=== PATIENT | female | born 1985 | race American Indian/Alaskan Native ===

== ENCOUNTER 2016-10-16 16:43 | Emergency (ER) | payer SELFPAY ==
[2016-10-16] MEDS ORDERED: BOOSTRIX IM ONE (18:15)
--- NOTE | 2016-10-16 18:24 | Emergency Department Report ---
- General Chief complaint: Skin/Abscess/Foreign Body Stated complaint: POSS SPIDER BITE Time Seen by Provider: 10/16/16 18:10 Source: patient Mode of arrival: Ambulatory Limitations: No Limitations - History of Present Illness Initial comments: Patient presents with swelling and redness to right lower calf with a puncture site. She also admits to itching around the thigh and pain with palpation. She denies recent travel. She also admits to staying at her sister's house who she noticed ants in the house. She however she did not see an insect or ant on her skin. She denies having seen a tick as well. She denies fever, chills, vomiting but does admit to some nausea. She also admits to itching at the site. He denies difficulty swallowing, shortness of breath, swelling of her throat. Symptoms began yesterday. MD complaint: rash -: Gradual Tetanus Up to Date: no Location: [facility] Severity: moderate Severity scale (0 -10): 8 Quality: sharp Consistency: intermittent Worsens with: palpation Associated symptoms: nausea Treatments Prior to Arrival: other (cleaned site with alcohol) - Related Data Previous Rx's Medication Instructions Recorded Last Taken Type Hyoscyamine Subl [Levsin Sl] 0.125 mg SL Q4HR PRN #10 tablet 02/16/14 Unknown Rx Ondansetron [Zofran Odt] 4 mg PO Q4H #14 tab.rapdis 02/16/14 Unknown Rx Hydroxyzine HCl 25 mg PO Q8HR #14 tablet 10/16/16 Unknown Rx Sulfamethoxazole/Trimethoprim 1 each PO BID #20 tablet 10/16/16 Unknown Rx [Bactrim DS TAB] Allergies Allergy/AdvReac Type Severity Reaction Status Date / Time No Known Allergies Allergy Unverified 02/15/14 21:44 Abscess Boil HPI - HPI Chief Complaint: Skin/Abscess/Foreign Body Stated Complaint: POSS SPIDER BITE Time Seen by Provider: 10/16/16 18:10 Home Medications: Previous Rx's Medication Instructions Recorded Last Taken Type Hyoscyamine Subl [Levsin Sl] 0.125 mg SL Q4HR PRN #10 tablet 02/16/14 Unknown Rx Ondansetron [Zofran Odt] 4 mg PO Q4H #14 tab.rapdis 02/16/14 Unknown Rx Hydroxyzine HCl 25 mg PO Q8HR #14 tablet 10/16/16 Unknown Rx Sulfamethoxazole/Trimethoprim 1 each PO BID #20 tablet 10/16/16 Unknown Rx [Bactrim DS TAB] Allergies/Adverse Reactions: Allergies Allergy/AdvReac Type Severity Reaction Status Date / Time No Known Allergies Allergy Unverified 02/15/14 21:44 ED Review of Systems ROS: Stated complaint: POSS SPIDER BITE Other details as noted in HPI Constitutional: denies: chills, fever Respiratory: denies: cough, shortness of breath, wheezing Cardiovascular: denies: chest pain, palpitations Gastrointestinal: nausea. denies: abdominal pain, vomiting, diarrhea Genitourinary: denies: urgency, dysuria, discharge Musculoskeletal: as per HPI Skin: as per HPI Neurological: denies: headache, weakness, paresthesias ED Past Medical Hx - Past Medical History Additional medical history: denies, anemia - Surgical History Additional Surgical History: cervical surgery - Social History Smoking Status: Former Smoker - Medications Home Medications: Home Medications Medication Instructions Recorded Confirmed Last Taken Type Hyoscyamine Subl [Levsin Sl] 0.125 mg SL Q4HR PRN #10 tablet 02/16/14 Unknown Rx Ondansetron [Zofran Odt] 4 mg PO Q4H #14 tab.rapdis 02/16/14 Unknown Rx Hydroxyzine HCl 25 mg PO Q8HR #14 tablet 10/16/16 Unknown Rx Sulfamethoxazole/Trimethoprim 1 each PO BID #20 tablet 10/16/16 Unknown Rx [Bactrim DS TAB] ED Physical Exam - General Limitations: No Limitations General appearance: alert, in no apparent distress, other (nontoxic appearance) - Head Head exam: Present: atraumatic, normocephalic - Eye Eye exam: Present: normal appearance, PERRL - Neck Neck exam: Present: normal inspection, full ROM. Absent: tenderness, lymphadenopathy - Respiratory Respiratory exam: Present: normal lung sounds bilaterally. Absent: respiratory distress - Cardiovascular Cardiovascular Exam: Present: regular rate, normal rhythm. Absent: systolic murmur, diastolic murmur, rubs, gallop - GI/Abdominal GI/Abdominal exam: Present: soft, normal bowel sounds - Neurological Exam Neurological exam: Present: alert, oriented X3 - Psychiatric Psychiatric exam: Present: normal affect, normal mood - Skin Skin exam: Present: warm, dry, intact, normal color, rash (posterior right calf lateral aspect there is redness, swelling, and a pinpoint puncture wound site. It is tender to palpation and patient has been scratching the area.) ED Course Vital Signs 10/16/16 17:17 Temperature 98.8 F Pulse Rate 95 H Respiratory 18 Rate Blood Pressure 129/83 O2 Sat by Pulse 100 Oximetry ED Medical Decision Making - Lab Data Result diagrams: 10/16/16 18:24 10/16/16 18:24 - Medical Decision Making Patient presents with right lower extremity cellulitis of approximately 1 inch in diameter with a single pinpoint puncture wound at that site. I will treat with Bactrim twice a day 10 days and hydroxyzine for the itching. I'll advise her to follow-up with outpatient clinic or back in the ED in 3-4 days to assure antibiotic treatment is working. I will give her a first dose of Bactrim before being discharged. CBC is within normal, CMP has not resulted but she will be notified if anything is abnormal. - Differential Diagnosis spider bite, cellulitis, abscess Critical Care Time: No Critical care attestation.: If time is entered above; I have spent that time in minutes in the direct care of this critically ill patient, excluding procedure time. ED Disposition Clinical Impression: Cellulitis Disposition: DISCHARGED TO HOME OR SELFCARE Is pt being admited?: No Does the pt Need Aspirin: No Condition: Stable Instructions: Cellulitis (ED), Insect Bite or Sting (ED), Acute Wound Care (ED) Additional Instructions: Follow-up with outpatient clinic or in the ED in 3-4 days to assure antibiotic is working. Follow up in the ED and immediately if pain, swelling, redness increases. Prescriptions: Sulfamethoxazole/Trimethoprim [Bactrim DS TAB] 1 each PO BID #20 tablet Hydroxyzine HCl 25 mg PO Q8HR #14 tablet Referrals: PRIMARY CARE, [Primary Care Provider] - 3-5 Days [facility] [Outside] - 3-5 Days Forms: Work/School Release Form(ED) Time of Disposition: 19:23
[2016-10-16 19:06] LABS: Basophils % (Auto) 0.3 % (0.0-1.8); Eosinophils % (Auto) 2.2 % (0.0-4.3); Hematocrit 39.5 % (30.3-42.9); Hemoglobin 13.1 gm/dl (10.1-14.3); Mean Corpuscular HGB Conc 33 % (30-34); Mean Corpuscular Hemoglobin 30 pg (28-32); Mean Corpuscular Volume 91 fl (79-97); Platelet Count 217 K/mm3 (140-440); Red Blood Count 4.34 M/mm3 (3.65-5.03); Red Cell Distribution Width 13.3 % (13.2-15.2); White Blood Count 6.6 K/mm3 (4.5-11.0)
[2016-10-16 19:24] LABS: Alanine Aminotransferase 10 units/L (7-56); Albumin 4.4 g/dL (3.9-5); Albumin/Globulin Ratio 1.3 %; Alkaline Phosphatase 63 units/L (35-129); Anion Gap 14 mmol/L; BUN/Creatinine Ratio 14.28; Bilirubin,Total 0.2 mg/dL (0.1-1.2); Blood Urea Nitrogen 10 mg/dL (7-17); Calcium 9.8 mg/dL (8.4-10.2); Carbon Dioxide 26 mmol/L (22-30); Chloride 97.1 mmol/L (98-107); Glucose 78 mg/dL (65-100); Potassium 3.9 mmol/L (3.6-5.0); Sodium 133 mmol/L (137-145); Total Protein 7.7 g/dL (6.3-8.2)
[2016-10-16] MEDS ORDERED: BACTRIM DS PO ONE (19:25)
[2016-10-16 20:01] VITALS: BP 128/80
== END 2016-10-16 20:04 | disposition home or self-care (01) ==
LOC: ED 16:43
DX: L03.115 Cellulitis of right lower limb (principal); Z87.891 Personal history of nicotine dependence
CPT/HCPCS: 36415; 80053; 84703; 85025; 90471; 90715

== ENCOUNTER 2017-04-15 11:44 | Emergency (ER) | payer SELFPAY ==
--- NOTE | 2017-04-15 12:07 | Emergency Department Report ---
ED General Adult HPI - General Chief complaint: Skin Rash Stated complaint: INSECT BITES Time Seen by Provider: 04/15/17 12:02 Source: patient Mode of arrival: Ambulatory Limitations: No Limitations - History of Present Illness Initial comments: PT states she went out of town for the weekend and she woke up with bug bites yesterday. PT states she has been having bites pop up. PT states she is concerned for bed bugs. PT states her and her child has similar bites. MD Complaint: rash -: Gradual, days(s), During the night Location: left, right, upper extremity, lower extremity Quality: other (itching ) Consistency: constant Improves with: none Associated Symptoms: rash. denies: nausea/vomiting, shortness of breath Treatments Prior to Arrival: none - Related Data Previous Rx's Medication Instructions Recorded Last Taken Type Hyoscyamine Subl [Levsin Sl] 0.125 mg SL Q4HR PRN #10 tablet 02/16/14 Unknown Rx Ondansetron [Zofran Odt] 4 mg PO Q4H #14 tab.rapdis 02/16/14 Unknown Rx Sulfamethoxazole/Trimethoprim 1 each PO BID #20 tablet 10/16/16 Unknown Rx [Bactrim DS TAB] hydrOXYzine PAMOATE [Vistaril] 25 mg PO Q6HR PRN #12 capsule 04/15/17 Unknown Rx predniSONE [Deltasone] 40 mg PO DAILY 3 Days 04/15/17 Unknown Rx Allergies Allergy/AdvReac Type Severity Reaction Status Date / Time No Known Allergies Allergy Unverified 02/15/14 21:44 ED Review of Systems ROS: Stated complaint: INSECT BITES Other details as noted in HPI Comment: All other systems reviewed and negative ENT: denies: throat pain Respiratory: denies: shortness of breath, SOB with exertion, SOB at rest Genitourinary: denies: abnormal menses (lmp yesterday ) Skin: as per HPI, rash ED Past Medical Hx - Past Medical History Additional medical history: denies, anemia - Surgical History Additional Surgical History: cervical surgery - Social History Smoking Status: Never Smoker Substance Use Type: None - Medications Home Medications: Home Medications Medication Instructions Recorded Confirmed Last Taken Type Hyoscyamine Subl [Levsin Sl] 0.125 mg SL Q4HR PRN #10 tablet 02/16/14 Unknown Rx Ondansetron [Zofran Odt] 4 mg PO Q4H #14 tab.rapdis 02/16/14 Unknown Rx Sulfamethoxazole/Trimethoprim 1 each PO BID #20 tablet 10/16/16 Unknown Rx [Bactrim DS TAB] hydrOXYzine PAMOATE [Vistaril] 25 mg PO Q6HR PRN #12 capsule 04/15/17 Unknown Rx predniSONE [Deltasone] 40 mg PO DAILY 3 Days 04/15/17 Unknown Rx ED Physical Exam - General Limitations: No Limitations General appearance: alert, in no apparent distress - Head Head exam: Present: atraumatic, normocephalic, other (bite to the R side of the face ) - Eye Eye exam: Present: normal appearance, PERRL, EOMI. Absent: conjunctival injection - ENT ENT exam: Present: normal exam, normal external ear exam - Neck Neck exam: Present: normal inspection, full ROM - Respiratory Respiratory exam: Present: normal lung sounds bilaterally. Absent: respiratory distress, chest wall tenderness - Cardiovascular Cardiovascular Exam: Present: regular rate, normal rhythm, normal heart sounds - GI/Abdominal GI/Abdominal exam: Present: soft. Absent: tenderness - Extremities Exam Extremities exam: Present: full ROM, other (LUE with whelps in linear pattern ) . Absent: tenderness - Back Exam Back exam: Present: normal inspection, full ROM. Absent: tenderness, CVA tenderness (R), CVA tenderness (L), muscle spasm, paraspinal tenderness, vertebral tenderness - Neurological Exam Neurological exam: Present: alert, oriented X3, normal gait - Skin Skin exam: Present: warm, dry, intact - Expanded Skin Exam Expanded Description of rash: Present: erythematous, swelling. Absent: vesicular, blisters, urticarial, crusting, discharge ED Course Vital Signs 04/15/17 12:07 Temperature 98.3 F Pulse Rate 72 Respiratory 18 Rate Blood Pressure 95/63 O2 Sat by Pulse 100 Oximetry - Pulse Oximetry Interpretation Digit-Finger Initial Pulse Oximetry Readin Actions Taken: none ED Medical Decision Making - Differential Diagnosis scabies, bed bugs, urticaria Critical Care Time: No Critical care attestation.: If time is entered above; I have spent that time in minutes in the direct care of this critically ill patient, excluding procedure time. ED Disposition Clinical Impression: Bed bug bite Qualifiers: Encounter type: initial encounter Qualified Code(s): W57.XXXA - Bitten or stung by nonvenomous insect and other nonvenomous arthropods, initial encounter Disposition: DC-01 TO HOME OR SELFCARE Is pt being admited?: No Does the pt Need Aspirin: No Condition: Stable Instructions: Insect Bite or Sting (ED) Additional Instructions: Wash all of your clothing and bedding that you took on your trip. Avoid direct sun exposure when on steroids Follow up with PCP in 3-5 days No [address] or alcohol after taking Vistaril Return to the ED if worsening swelling, redness, or concerns Prescriptions: hydrOXYzine PAMOATE [Vistaril] 25 mg PO Q6HR PRN #12 capsule PRN Reason: Itching predniSONE [Deltasone] 40 mg PO DAILY 3 Days Referrals: KAREN THAYER MD [Staff Physician] - 3-5 Days Time of Disposition: 12:51
[2017-04-15 12:10] VITALS: BP 95/63
== END 2017-04-15 14:14 | disposition home or self-care (01) ==
LOC: ED 11:44
DX: S00.86XA Insect bite (nonvenomous) of other part of head, initial encounter (principal); W57.XXXA Bitten or stung by nonvenomous insect and other nonvenomous arthropods, initial encounter; Y93.89 Activity, other specified; Y92.89 Other specified places as the place of occurrence of the external cause; Y99.8 Other external cause status
CPT/HCPCS: 99282

== ENCOUNTER 2018-05-09 06:20 | Emergency (ER) | payer SELFPAY ==
[2018-05-09] MEDS ORDERED: NACL 0.9% 1000 ML 1,000 ML IV ONE ×2 (06:25→09:35)
[2018-05-09 06:55] LABS: Basophils % (Auto) 0.3 % (0.0-1.8); Eosinophils # (Auto) 0.1 K/mm3 (0.0-0.4); Hematocrit 39.1 % (30.3-42.9); Lymphocytes % (Auto) 11.6 % (13.4-35.0); Mean Corpuscular HGB Conc 33 % (30-34); Mean Corpuscular Hemoglobin 30 pg (28-32); Mean Corpuscular Volume 91 fl (79-97); Monocytes # (Auto) 0.3 K/mm3 (0.0-0.8); Monocytes % (Auto) 3.6 % (0.0-7.3); Platelet Count 249 K/mm3 (140-440); Red Blood Count 4.28 M/mm3 (3.65-5.03); Red Cell Distribution Width 13.4 % (13.2-15.2)
[2018-05-09 07:09] LABS: Alanine Aminotransferase 12 units/L (7-56); Albumin 4.5 g/dL (3.9-5); BUN/Creatinine Ratio 9; Blood Urea Nitrogen 6 mg/dL (7-17); Calcium 9.2 mg/dL (8.4-10.2); Hemolysis Index 20
[2018-05-09 07:34] LABS: Bilirubin,Urine NEG (Negative); Blood,Urine SM (Negative); Color,Urine Straw (Yellow); Mucus,Urine FEW /HPF; Protein,Urine <15 mg/dL mg/dL (Negative); Urobilinogen,Urine < 2.0 mg/dL (<2.0)
[2018-05-09 09:21] VITALS: BP 124/66
[2018-05-09] MEDS ORDERED: TORADOL IV ONE (09:35)
--- NOTE | 2018-05-09 09:50 | Emergency Department Report ---
Blank Doc - Documentation Documentation: 32-year-old female with a past medical history of anemia and cervical surgery presents to hospital complaining of abdominal pain since yesterday. Patient complains of generalized abdominal pain with a saturation intensity described as a tightness. Pain is constant, worse with palpation and movement. No relieving factor supportive. Positive nausea without vomiting. For 3 days prior to pain onset patient had diarrhea. She denies melena, hematochezia, hematemesis, or fever. She also denies sick contacts or recent international travel. Patient states he has had intermittent pain and problems with her stomach since she was a child she has never received GI follow-up. Pain is greatest on exam at the umbilicus this in the right lower quadrant Labs reviewed Meds ordered Toradol, Zofran, normal saline CT abdomen and pelvis IV contrast pending Mid-level to follow
[2018-05-09] MEDS ORDERED: ZOFRAN IV ONE (09:54)
[2018-05-09] MEDS ORDERED: ZOFRAN ONE (09:58)
--- NOTE | 2018-05-09 10:04 | Emergency Department Report ---
ED Abdominal Pain HPI - General Chief Complaint: Abdominal Pain Stated Complaint: ABD PAIN Time Seen by Provider: 05/09/18 09:12 Source: patient Mode of arrival: Ambulatory Limitations: No Limitations - History of Present Illness Initial Comments: 32-year-old female with a past medical history of anemia and cervical surgery presents to hospital complaining of abdominal pain since yesterday. Patient complains of generalized abdominal pain with intensity described as a tightness. Pain is constant, worse with palpation and movement. No relieving factor supportive. Positive nausea without vomiting. For 3 days prior to pain onset patient had diarrhea. She denies melena, hematochezia, hematemesis, or fever. She also denies sick contacts or recent international travel. Patient states he has had intermittent pain and problems with her stomach since she was a child she has never received GI follow-up. Pain is 8/10. MD Complaint: abdominal pain Onset/Timin -: days(s) Location: periumbilical Radiation: none Migration to: no migration Severity scale (0 -10): 8 Quality: other (8) Consistency: constant Improves With: nothing Worsens With: nothing Associated Symptoms: nausea. denies: vomiting, diarrhea, fever, chills, constipation, dysuria, hematemesis, hematochezia, melena, hematuria, anorexia, syncope Treatments Prior to Arrival: other - Related Data LMP Date: 04/04/18 Previous Rx's Medication Instructions Recorded Last Taken Type Hyoscyamine Subl [Levsin Sl] 0.125 mg SL Q4HR PRN #10 tablet 02/16/14 Unknown Rx Ondansetron [Zofran Odt] 4 mg PO Q4H #14 tab.rapdis 02/16/14 Unknown Rx Sulfamethoxazole/Trimethoprim 1 each PO BID #20 tablet 10/16/16 Unknown Rx [Bactrim DS TAB] hydrOXYzine PAMOATE [Vistaril] 25 mg PO Q6HR PRN #12 capsule 04/15/17 Unknown Rx predniSONE [Deltasone] 40 mg PO DAILY 3 Days tablet 04/15/17 Unknown Rx Naproxen [Naprosyn] 500 mg PO Q12H PRN #16 tablet 05/09/18 Unknown Rx Ondansetron [Zofran Odt] 4 mg PO Q8HR PRN #12 tab.rapdis 08/24/18 Unknown Rx Allergies Allergy/AdvReac Type Severity Reaction Status Date / Time No Known Allergies Allergy Unverified 02/15/14 21:44 ED Review of Systems ROS: Stated complaint: ABD PAIN Other details as noted in HPI Constitutional: denies: chills, fever ENT: denies: throat pain Respiratory: denies: cough, shortness of breath, SOB with exertion, SOB at rest , wheezing Cardiovascular: denies: chest pain, palpitations, edema, syncope Gastrointestinal: abdominal pain, nausea. denies: vomiting, diarrhea, constipation, hematemesis, melena, hematochezia Genitourinary: abnormal menses. denies: urgency, dysuria, frequency, hematuria , discharge, dyspareunia Musculoskeletal: denies: back pain, joint swelling, arthralgia Skin: denies: rash, lesions Psychiatric: anxiety ED Past Medical Hx - Past Medical History Previous Medical History?: Yes Additional medical history: denies, anemia - Surgical History Past Surgical History?: Yes Additional Surgical History: cervical surgery - Family History Family history: hypertension - Social History Smoking Status: Current Every Day Smoker Substance Use Type: Marijuana - Medications Home Medications: Home Medications Medication Instructions Recorded Confirmed Last Taken Type Hyoscyamine Subl [Levsin Sl] 0.125 mg SL Q4HR PRN #10 tablet 02/16/14 Unknown Rx Ondansetron [Zofran Odt] 4 mg PO Q4H #14 tab.rapdis 02/16/14 Unknown Rx Sulfamethoxazole/Trimethoprim 1 each PO BID #20 tablet 10/16/16 Unknown Rx [Bactrim DS TAB] hydrOXYzine PAMOATE [Vistaril] 25 mg PO Q6HR PRN #12 capsule 04/15/17 Unknown Rx predniSONE [Deltasone] 40 mg PO DAILY 3 Days tablet 04/15/17 Unknown Rx Naproxen [Naprosyn] 500 mg PO Q12H PRN #16 tablet 05/09/18 Unknown Rx Ondansetron [Zofran Odt] 4 mg PO Q8HR PRN #12 tab.rapdis 05/09/18 Unknown Rx ED Physical Exam - General Limitations: No Limitations General appearance: alert, in no apparent distress - Head Head exam: Present: atraumatic, normocephalic, normal inspection - Eye Eye exam: Present: normal appearance, EOMI Pupils: Present: normal accommodation - ENT ENT exam: Present: normal exam, normal orophraynx, mucous membranes moist, TM's normal bilaterally, normal external ear exam - Neck Neck exam: Present: normal inspection, full ROM. Absent: tenderness, lymphadenopathy - Respiratory Respiratory exam: Present: normal lung sounds bilaterally. Absent: respiratory distress, chest wall tenderness - Cardiovascular Cardiovascular Exam: Present: regular rate, normal rhythm, normal heart sounds. Absent: systolic murmur, diastolic murmur, rubs, gallop - GI/Abdominal GI/Abdominal exam: Present: soft, tenderness (right pelvic area and periumbilical area), normal bowel sounds. Absent: distended, guarding, rebound , rigid, organomegaly, mass - Extremities Exam Extremities exam: Present: normal inspection, full ROM, normal capillary refill , other (No cce. + 2 pulses in all extremities, no neurovascular compromise). Absent: tenderness, pedal edema, joint swelling, calf tenderness - Back Exam Back exam: Present: normal inspection, full ROM, tenderness, other (ambulates without any difficulties). Absent: CVA tenderness (L), rash noted - Neurological Exam Neurological exam: Present: alert, oriented X3, normal gait - Psychiatric Psychiatric exam: Present: normal affect, normal mood - Skin Skin exam: Present: warm, dry, intact, normal color. Absent: rash ED Course Vital Signs 05/09/18 05/09/18 05/09/18 06:24 06:25 09:20 Temperature 99.1 F 99.1 F Pulse Rate 105 H 107 H 92 H Respiratory 20 20 18 Rate Blood Pressure 112/73 Blood Pressure 112/73 124/66 [Right] O2 Sat by Pulse 100 100 100 Oximetry 05/09/18 10:02 Temperature Pulse Rate Respiratory 18 Rate Blood Pressure Blood Pressure [Right] O2 Sat by Pulse Oximetry - Reevaluation(s) Reevaluation #1: 05/09/18 12:09 Patient received Toradol 30 mg IV, Zofran 4 mg IV for nausea and abdominal pain. She receive IV fluids 2 L normal saline. Upon her evaluation. Abdomen is nontender to palpate and she says she is feeling a lot better. ED Medical Decision Making - Lab Data Result diagrams: 05/09/18 06:41 05/09/18 06:41 Lab Results 05/09/18 05/09/18 05/09/18 Range/Units 06:41 06:41 06:41 WBC 8.4 (4.5-11.0) K/mm3 RBC 4.28 (3.65-5.03) M/mm3 Hgb 13.0 (10.1-14.3) gm/dl Hct 39.1 (30.3-42.9) % MCV 91 (79-97) fl MCH 30 (28-32) pg MCHC 33 (30-34) % RDW 13.4 (13.2-15.2) % Plt Count 249 (140-440) K/mm3 Lymph % (Auto) 11.6 L (13.4-35.0) % [place] % (Auto) 3.6 (0.0-7.3) % Eos % (Auto) 1.0 (0.0-4.3) % Baso % (Auto) 0.3 (0.0-1.8) % Lymph # 1.0 L (1.2-5.4) K/mm3 [place] # 0.3 (0.0-0.8) K/mm3 Eos # 0.1 (0.0-0.4) K/mm3 Baso # 0.0 (0.0-0.1) K/mm3 Seg Neutrophils % 83.5 H (40.0-70.0) % Seg Neutrophils # 7.0 (1.8-7.7) K/mm3 Sodium 134 L (137-145) mmol/L Potassium 3.8 (3.6-5.0) mmol/L Chloride 101.3 (98-107) mmol/L Carbon Dioxide 21 L (22-30) mmol/L Anion Gap 16 mmol/L BUN 6 L (7-17) mg/dL Creatinine 0.7 (0.7-1.2) mg/dL Estimated GFR > 60 ml/min BUN/Creatinine Ratio 9 % Glucose 91 (65-100) mg/dL Calcium 9.2 (8.4-10.2) mg/dL Total Bilirubin 0.80 (0.1-1.2) mg/dL AST 17 (5-40) units/L ALT 12 (7-56) units/L Alkaline Phosphatase 72 (35-129) units/L Total Protein 7.7 (6.3-8.2) g/dL Albumin 4.5 (3.9-5) g/dL Albumin/Globulin Ratio 1.4 % HCG, Qual Negative (Negative) Urine Color (Yellow) Urine Turbidity (Clear) Urine pH (5.0-7.0) Ur Specific [place] (1.003-1.030) Urine Protein (Negative) mg/dL Urine Glucose (UA) (Negative) mg/dL Urine Ketones (Negative) mg/dL Urine Blood (Negative) Urine Nitrite (Negative) Urine Bilirubin (Negative) Urine Urobilinogen (<2.0) mg/dL Ur Leukocyte Esterase (Negative) Urine WBC (Auto) (0.0-6.0) /HPF Urine RBC (Auto) (0.0-6.0) /HPF U Epithel Cells (Auto) (0-13.0) /HPF Urine Mucus /HPF 05/09/18 Range/Units Unknown WBC (4.5-11.0) K/mm3 RBC (3.65-5.03) M/mm3 Hgb (10.1-14.3) gm/dl Hct (30.3-42.9) % MCV (79-97) fl MCH (28-32) pg MCHC (30-34) % RDW (13.2-15.2) % Plt Count (140-440) K/mm3 Lymph % (Auto) (13.4-35.0) % [place] % (Auto) (0.0-7.3) % Eos % (Auto) (0.0-4.3) % Baso % (Auto) (0.0-1.8) % Lymph # (1.2-5.4) K/mm3 [place] # (0.0-0.8) K/mm3 Eos # (0.0-0.4) K/mm3 Baso # (0.0-0.1) K/mm3 Seg Neutrophils % (40.0-70.0) % Seg Neutrophils # (1.8-7.7) K/mm3 Sodium (137-145) mmol/L Potassium (3.6-5.0) mmol/L Chloride (98-107) mmol/L Carbon Dioxide (22-30) mmol/L Anion Gap mmol/L BUN (7-17) mg/dL Creatinine (0.7-1.2) mg/dL Estimated GFR ml/min BUN/Creatinine Ratio % Glucose (65-100) mg/dL Calcium (8.4-10.2) mg/dL Total Bilirubin (0.1-1.2) mg/dL AST (5-40) units/L ALT (7-56) units/L Alkaline Phosphatase (35-129) units/L Total Protein (6.3-8.2) g/dL Albumin (3.9-5) g/dL Albumin/Globulin Ratio % HCG, Qual (Negative) Urine Color Straw (Yellow) Urine Turbidity Clear (Clear) Urine pH 7.0 (5.0-7.0) Ur Specific [place] 1.006 (1.003-1.030) Urine Protein <15 mg/dl (Negative) mg/dL Urine Glucose (UA) Neg (Negative) mg/dL Urine Ketones Neg (Negative) mg/dL Urine Blood Sm (Negative) Urine Nitrite Neg (Negative) Urine Bilirubin Neg (Negative) Urine Urobilinogen < 2.0 (<2.0) mg/dL Ur Leukocyte Esterase Neg (Negative) Urine WBC (Auto) 1.0 (0.0-6.0) /HPF Urine RBC (Auto) 3.0 (0.0-6.0) /HPF U Epithel Cells (Auto) < 1.0 (0-13.0) /HPF Urine Mucus Few /HPF - Radiology Data Radiology results: report reviewed CT scan of abdomen and pelvis with contrast dictated by radiologist and report reviewed by myself. Please see details below Findings [facility] [address] [place] [address] Cat Scan Report Signed Patient: YAMILET SORIANO MR#: [id number] : 1985 Acct:[id number] Age/Sex: 32 / F ADM Date: 05/09/18 Loc: ED Attending Dr: Ordering Physician: ISAC VENTURA MD Date of Service: 05/09/18 Procedure(s): CT abdomen pelvis w con Accession Number(s): [id number] cc: ISAC VENTURA MD CT abdomen and pelvis with contrast: Right lower quadrant and periumbilical pain. Transverse images are obtained from the lower chest to the ischium following injection of IV contrast. Coronal and sagittal 2-D reformatted images included. The visualized lung bases are clear. The abdominal and retroperitoneal organs are unremarkable except for an apparent cyst involving the posterior superior right lobe of the liver. A couple of slightly dilated fluid-filled loops of small bowel are identified in the right upper quadrant however the unopacified bowel and mesentery is otherwise unremarkable. The appendix is not clearly identified. There is no indication however of inflammatory change this region or elsewhere in the abdomen. Sections through the pelvis demonstrates a 3.7 cm cyst in the right ovary. No free fluid identified. An IUD is present in the central uterus. Impression: 1. Right ovarian cyst. 2. Nonspecific focal fluid-filled loops of slightly dilated small bowel. Transcribed By: MARILY Dictated By: KASH HEALY MD Electronically Authenticated By: KASH HEALY MD Signed Date/Time: 05/09/18 1041 DD/ 1036 TD/TT: 05/09/18 1041 - Medical Decision Making This is a 32-year-old female here report that she is having abdominal tightness and nausea. She did not be evaluated. Patient was seen and evaluated by myself and her physical exam is normal except she has abdominal tenderness to periumbilical area and right lower quadrant without any acute abdomen. She has no mass, bruit or hernia. Bowel sounds are present throughout abdomen. No guarding or rebound. CT scan of the abdomen and pelvis dated by radiologist and report reviewed by myself and shows right ovarian cyst. Nonspecific focal fluid-filled loops of slightly dilated small bowel. Patient received Zofran 4 g IV which relieved her nausea. Toradol 30 mg IV and 2 L of normal saline which relieved her abdominal discomfort. She says she is feeling better. Vital signs are stable she is afebrile and pain is controlled. Patient discharged home to follow up with [facility] in 3 days and to return to the emergency room if her condition worsens. She voiced understanding. Discharged home with prescription for Zofran and naproxen. Critical care attestation.: If time is entered above; I have spent that time in minutes in the direct care of this critically ill patient, excluding procedure time. ED Disposition Clinical Impression: Right ovarian cyst, Nausea alone Abdominal pain Qualifiers: Abdominal location: generalized Qualified Code(s): R10.84 - Generalized abdominal pain Disposition: - TO HOME OR SELFCARE Is pt being admited?: No Does the pt Need Aspirin: No Condition: Stable Instructions: Abdominal Pain (ED), Ovarian Cyst (ED), Acute Nausea and Vomiting (ED) Additional Instructions: follow-up with [facility] as instructed. Take medication as prescribed Follow-up with outside Medical Center if you do not have a primary care doctor in 3 days History condition worsens, Discharged emergency room Increase water intake to at least 2-3 L per day. Prescriptions: Naproxen [Naprosyn] 500 mg PO Q12H PRN #16 tablet PRN Reason: Abdominal cramping Ondansetron [Zofran Odt] 4 mg PO Q8HR PRN #12 tab.rapdis PRN Reason: Nausea And Vomiting Referrals: PRIMARY CARE, [Primary Care Provider] - 3-5 Days [facility] [Provider Group] - 3-5 Days [facility] [Provider Group] - 05/12/18 Forms: Work/School Release Form(ED)
--- NOTE | 2018-05-09 10:59 | Cat Scan Report ---
CT abdomen and pelvis with contrast: Right lower quadrant and periumbilical pain. Transverse images are obtained from the lower chest to the ischium following injection of IV contrast. Coronal and sagittal 2-D reformatted images included. The visualized lung bases are clear. The abdominal and retroperitoneal organs are unremarkable except for an apparent cyst involving the posterior superior right lobe of the liver. A couple of slightly dilated fluid-filled loops of small bowel are identified in the right upper quadrant however the unopacified bowel and mesentery is otherwise unremarkable. The appendix is not clearly identified. There is no indication however of inflammatory change this region or elsewhere in the abdomen. Sections through the pelvis demonstrates a 3.7 cm cyst in the right ovary. No free fluid identified. An IUD is present in the central uterus. Impression: 1. Right ovarian cyst. 2. Nonspecific focal fluid-filled loops of slightly dilated small bowel.
== END 2018-05-09 12:31 | disposition home or self-care (01) ==
LOC: ED 06:20
DX: N83.201 Unspecified ovarian cyst, right side (principal); F17.200 Nicotine dependence, unspecified, uncomplicated; F12.10 Cannabis abuse, uncomplicated; Z86.2 Personal history of diseases of the blood and blood-forming organs and certain disorders involving the immune mechanism; Z79.899 Other long term (current) drug therapy
CPT/HCPCS: 36415; 74177; 80053; 81001; 84703; 85025; 96374; 96375; 99284; J1885; J2405; J7030; Q9967